=== PATIENT | female | born 1960 | race African-American/Black ===

== ENCOUNTER → 2021-06-22 | Day surgery (SDC) | payer MEDICARE ==
[2021-06-14 12:41] VITALS: BMI 26.2
[~2021-06-22] MED LIST: Sodium Bicarbonate 2.5 MEQ/5 ML VIAL ONE
== END ==
LOC: RAD 11:25
PROVIDERS: ATTEND Surgery
PROC: B02B1ZZ Computerized Tomography (CT Scan) of Spinal Cord using Low Osmolar Contrast (ICD-10-PCS; principal; 2021-06-22)
DX: M54.41 Lumbago with sciatica, right side (principal); M85.88 Other specified disorders of bone density and structure, other site; M51.24 Other intervertebral disc displacement, thoracic region; M48.061 Spinal stenosis, lumbar region without neurogenic claudication; M47.816 Spondylosis without myelopathy or radiculopathy, lumbar region; M51.36 Other intervertebral disc degeneration, lumbar region; M43.16 Spondylolisthesis, lumbar region; M47.817 Spondylosis without myelopathy or radiculopathy, lumbosacral region; I11.0 Hypertensive heart disease with heart failure; I50.9 Heart failure, unspecified; E78.5 Hyperlipidemia, unspecified; I47.1 Supraventricular tachycardia; I48.91 Unspecified atrial fibrillation; Z87.891 Personal history of nicotine dependence; Z79.899 Other long term (current) drug therapy; Z95.810 Presence of automatic (implantable) cardiac defibrillator
CPT/HCPCS: 72120; 72132; 77002